=== PATIENT | female | born 1995 | race Caucasian/White ===

== ENCOUNTER 2021-05-09 22:03 | Emergency (ER) | payer SELFPAY ==
[~2021-05-09] VITALS: Ht 152.4 cm; Wt 100.0 kg
[~2021-05-09 22:03] MED LIST: GLUCOPHAGE500 MG/TAB PO; LEVAQUIN 5500 MG/TA1 PO; OMNICEF 300MG300 MG PO; PYRIDIUM200 M1 PO
[2021-05-09 23:00] LABS: BASO # 0.1 K/mm3 (0.0-0.2); BASO % 0.7 % (0.0-2.0); EOS # 0.2 K/mm3 (0.0-0.7); EOS % 1.7 % (0-4.0); GRAN # 8.6 K/mm3 (1.4-6.5); GRAN % 65.8 % (42.2-75.2); HEMOGLOBIN 14.2 g/dl (12.5-16.0); LYMPH % 22.8 % (20.0-51.0); MEAN CELL VOLUME 86 fl (80.0-100.0); MEAN CORPUSCULAR HEMOGLOBIN 28 pg (27.0-31.0); MEAN CORPUSCULAR HGB CONC 32 g/dl (33.0-37.0); MEAN PLATELET VOLUME 9.7 fl (7.4-10.4); MONO # 1.1 K/mm3 (0.1-0.6); MONO % 8.7 % (1.7-9.3); PLATELET COUNT 375 K/mm3 (130-400); RED BLOOD COUNT 5.13 M/mm3 (4.10-5.30); REDCELL DISTRIBUTION WIDTH-CV 13.2 % (11.5-14.5)
[2021-05-09 23:11] LABS: ALBUMIN 3.8 gm/dL (3.5-5.0); BILIRUBIN,TOTAL 0.2 mg/dL (0.2-1.2); CALCIUM 9.5 mg/dL (8.4-10.2); CREATININE, serum 0.76 mg/dL (0.57-1.11); POTASSIUM 3.9 mmol/L (3.5-4.5); TOTAL PROTEIN 7.5 gm/dL (6.2-8.1)
[2021-05-10 00:39] LABS: COLLECTION METHOD CLEAN CATCH
[2021-05-10 00:58] LABS: MUCOUS Present /lpf; PH 8 (5-8); URINE APPEARANCE Hazy; URINE BACTERIA Rare /hpf; URINE BILIRUBIN Negative (NEGATIVE); URINE BLOOD 3+ (NEGATIVE); URINE COLOR Yellow; URINE GLUCOSE Negative (NEGATIVE); URINE KETONE Negative (NEGATIVE); URINE LEUKOCYTE ESTERASE Negative (NEGATIVE); URINE NITRATE Negative (NEGATIVE); URINE PROTEIN(semi-quant) Negative (NEGATIVE); URINE RBC None Seen /hpf; URINE UROBILINOGEN Negative (NEGATIVE)
[2021-05-10] MEDS ORDERED: CEPHALEXIN500 M1 PO (01:19)
[2021-05-10 01:36] VITALS: BP 118/72; PULSE 63; TEMP 98.4
== END 2021-05-10 01:36 | disposition home or self-care (01) ==
LOC: COL.ER 22:03
PROVIDERS: Physician Assistant
DX: S09.90XA Unspecified injury of head, initial encounter (principal); N39.0 Urinary tract infection, site not specified; E86.0 Dehydration; R55 Syncope and collapse; R19.7 Diarrhea, unspecified; E28.2 Polycystic ovarian syndrome; F17.210 Nicotine dependence, cigarettes, uncomplicated; Z79.84 Long term (current) use of oral hypoglycemic drugs; W22.8XXA Striking against or struck by other objects, initial encounter; Y99.0 Civilian activity done for income or pay
CPT/HCPCS: J1200; J2765; J7030

== ENCOUNTER 2021-05-25 22:03 | Emergency (ER) | payer SELFPAY ==
[~2021-05-25] VITALS: Ht 152.4 cm; Wt 102.3 kg
[~2021-05-25 22:03] MED LIST changes: +CEPHALEXIN500 M1 PO
[2021-05-25 22:19] VITALS: BP 130/63; PULSE 89; TEMP 98.3
[2021-05-25] MEDS ORDERED: DOXYCYCLINE 10100 MG PO (22:31)
== END 2021-05-25 22:40 | disposition home or self-care (01) ==
LOC: COL.ER 22:03
DX: L03.116 Cellulitis of left lower limb (principal); F17.200 Nicotine dependence, unspecified, uncomplicated

== ENCOUNTER 2021-10-31 22:14 | Emergency (ER) | payer SELFPAY ==
[~2021-10-31] VITALS: Ht 157.5 cm; Wt 113.6 kg
[~2021-10-31 22:14] MED LIST changes: +DOXYCYCLINE 10100 MG PO
[2021-11-01] MEDS ORDERED: CEFTIN 250250 MG/TAB PO (00:29)
[2021-11-01 00:33] VITALS: BP 118/83; PULSE 70; TEMP 98.4
== END 2021-11-01 01:39 | disposition home or self-care (01) ==
LOC: COL.ER 22:14
DX: H66.91 Otitis media, unspecified, right ear (principal); Z96.22 Myringotomy tube(s) status; Z87.891 Personal history of nicotine dependence

== ENCOUNTER 2024-03-20 15:32 | Emergency (ER) | payer SELFPAY ==
[~2024-03-20] VITALS: Ht 157.5 cm; Wt 116.4 kg
[~2024-03-20 15:32] MED LIST changes: +CEFTIN 250250 MG/TAB PO
[2024-03-20 15:42] VITALS: TEMP 98.1
[2024-03-20 18:39] LABS: COLLECTION METHOD CLEAN CATCH
[2024-03-20 18:42] LABS: BASO # 0.1 K/mm3 (0.0-0.2); BASO % 0.7 % (0.0-2.0); EOS # 0.2 K/mm3 (0.0-0.7); EOS % 1.5 % (0.0-4.0); GRAN % 65.1 % (42.2-75.2); HEMATOCRIT 43.6 % (37.0-47.0); LYMPH # 2.8 K/mm3 (1.2-3.4); MEAN CELL VOLUME 84 fl (80.0-100.0); MEAN CORPUSCULAR HEMOGLOBIN 27 pg (27-31); MEAN CORPUSCULAR HGB CONC 32 g/dl (33.0-37.0); MEAN PLATELET VOLUME 9.5 fl (7.4-10.4); MONO # 0.7 K/mm3 (0.1-0.6); MONO % 6.5 % (1.7-9.3); PLATELET COUNT 381 K/mm3 (130-400); RED BLOOD COUNT 5.17 M/mm3 (4.10-5.30); REDCELL DISTRIBUTION WIDTH-CV 13.2 % (11.5-14.5)
[2024-03-20 18:48] LABS: PH 5.5 (5.0-8.5); URINE APPEARANCE CLEAR (CLEAR/HAZY); URINE BLOOD 3+ (NEGATIVE); URINE COLOR YELLOW (YELLOW); URINE GLUCOSE NEGATIVE (NEGATIVE); URINE KETONE NEGATIVE (NEGATIVE); URINE NITRATE NEGATIVE (NEGATIVE); URINE PROTEIN(semi-quant) NEGATIVE (NEGATIVE); URINE UROBILINOGEN 0.2 E.U/dL (0.2-1.0)
[2024-03-20 19:11] LABS: ALANINE AMINOTRANSFERASE 35 U/L (0-55); ALBUMIN 3.6 g/dL (3.5-5.0); ALKALINE PHOSPHATASE 94 U/L (40-150); ANION GAP 13 mmol/L (7-16); AST,SGOT 26 U/L (5-34); BLOOD UREA NITROGEN 8 mg/dL (7-19); CALCIUM 10.4 mg/dL (8.4-10.2); CHLORIDE 106 mEq/L (98-107); CREATININE, serum 0.82 mg/dL (0.57-1.11); GLUCOSE 76 mg/dL (70-99); POTASSIUM 4.1 mEq/L (3.5-4.5); SODIUM 139 mEq/L (136-145); TOTAL PROTEIN 7.2 g/dl (6.2-8.1)
[2024-03-20 19:22] LABS: HCG,QUANTITATIVE < 1 mIU/mL
[2024-03-20 19:32] LABS: BILIRUBIN,TOTAL 0.4 mg/dL (0.2-1.2)
[2024-03-20 20:01] VITALS: BP 114/69; PULSE 78
== END 2024-03-20 20:02 | disposition home or self-care (01) ==
LOC: COL.ER 15:32
PROVIDERS: Family Medicine
DX: N92.0 Excessive and frequent menstruation with regular cycle (principal)